=== PATIENT | male | born 1995 | race Hispanic/Latino ===

== ENCOUNTER 2023-04-30 22:11 | Inpatient (IN) | payer SELFPAY ==
[2023-04-30 23:19] LABS: ALT (SGPT) 27 U/L (8-55); AST (SGOT) 22 U/L (5-34); Albumin 3.9 g/dL (3.5-5.0); Alkaline Phosphatase 111 U/L (40-110); Anion Gap 16 mmol/L (10-20); BUN (Urea Nitrogen) 16 mg/dL (8.9-20.6); Bilirubin, Total 0.5 mg/dL (0.2-1.2); Calc. Creatinine Clearance 0 mL/min (70-130); Calcium 9.5 mg/dL (7.8-10.44); Carbon Dioxide 24 mmol/L (22-29); Chloride 95 mmol/L (98-107); Estimated GFR 120; Potassium 4.5 mmol/L (3.5-5.1); Protein, Total 6.9 g/dL (6.0-8.3); Sodium 130 mmol/L (136-145)
[2023-04-30 23:21] LABS: Glucose 432 mg/dL (70-105)
[2023-04-30 23:26] LABS: #Basophils 0.1 10x3/uL (0.0-0.2); #Monocytes 0.5 10x3/uL (0.0-1.1); #Neutrophils 3.3 10x3/uL (1.5-8.4); %Basophils 0.8 % (0.0-2.0); %Eosinophils 0.6 % (0.0-6.0); %Lymphocytes 37.9 % (18.0-47.0); %Monocytes 7.4 % (0.0-10.0); %Neutrophils 53.1 % (40.0-75.0); Hematocrit 43.3 % (38.8-50.0); Hemoglobin 15.3 g/dL (13.5-17.5); Mean Corpuscular HGB CONC 35.3 g/dL (32.0-36.0); Mean Corpuscular Hemoglobin 28.3 pg (27.0-33.0); Mean Platelet Volume 10.1 fl (7.4-10.4); Platelet Count 316 10x3/uL (150-450); RBC Distribution Width 11.8 % (11.5-14.5); Red Blood Cell (RBC) Count 5.41 10x6/uL (4.32-5.72); White Blood Cell (WBC) Count 6.2 10x3/uL (3.5-10.5)
[2023-05-01 01:16] LABS: SARS-CoV-2 NAA Rapid Test Not Detected (NotDetected)
[2023-05-01] MEDS ORDERED: Ketorolac Tromethamine 30 MG/ML VIAL ONE (02:07)
[2023-05-01] MEDS ORDERED: Dextrose 5% in Water 1,000 ML IV PRN (04:53)
[2023-05-01] MEDS ORDERED: Glucagon 1 MG/ML KIT IM PRN (04:53)
[2023-05-01] MEDS ORDERED: Acetaminophen 325 MG TAB PO PRN (04:53)
[2023-05-01] MEDS ORDERED: Senokot S 8.6-50 MG TAB PO PRN (04:53)
[2023-05-01] MEDS ORDERED: Guaifenesin DM 100-10/5 ML UDCUP PO PRN (04:53)
[2023-05-01] MEDS ORDERED: Calcium Carbonate 500 MG ChewTAB PO PRN (04:53)
[2023-05-01] MEDS ORDERED: Ondansetron PF 4 MG/2 ML Vial IVP PRN (04:53)
[2023-05-01] MEDS ORDERED: Dextrose 50% Abboject 50 ML SYRINGE SLOW IVP PRN (04:53)
[2023-05-01] MEDS ORDERED: Lactated Ringer's 1,000 ML IV SCH (05:15)
[2023-05-01 06:08] VITALS: BMI 23.6
[2023-05-01 06:29] LABS: Bilirubin Neg (Negative); Blood, Urine Negative (Negative); Clarity Clear (Clear); Glucose, Urine (Dipstick) >=1000 mg/dL (Negative); Ketone, Urine 150 mg/dL (Negative); Leukocyte Negative (Negative); Nitrite Negative (Negative); Protein, Urine (Dipstick) 100 mg/dl (Neg-Trace); Specific Gravity, Urine 1.015 (1.005-1.030); Urobilinogen Normal mg/dL (Less than 2)
[2023-05-01] MEDS: Gabapentin 400 MG CAP PO SCH ×3 (06:32→21:47)
[2023-05-01] MEDS: HumaLOG 300 UNITS/3 ML VIAL SC PRN ×5 (06:33→20:23)
[2023-05-01 06:36] LABS: RBC/HPF None Seen HPF (0-3)
[2023-05-01 06:37] LABS: Bacteria/HPF None Seen HPF (None Seen); Squamous Epithelial 0-3 HPF (0-3); WBC/HPF 0-3 HPF (0-3)
[2023-05-01] MEDS ORDERED: Lantus 1000 UNITS/10 ML VIAL SC SCH (09:00)
[2023-05-01] MEDS ORDERED: Gabapentin 400 MG CAP PO SCH (09:00)
[2023-05-01] MEDS: DULoxetine 20 MG CAP PO SCH (09:28)
[2023-05-01] MEDS: glipiZIDE 5 MG TAB PO SCH (09:28)
[2023-05-01] MEDS: Lisinopril 10 MG TAB PO SCH (09:28)
[2023-05-01] MEDS: Lidocaine 4% Patch TD SCH (09:28)
[2023-05-01] MEDS: metFORMIN 500 MG TAB PO SCH ×2 (09:28→16:01)
[2023-05-01] MEDS: Cyanocobalamin (Vitamin B-12) 1,000 MCG TAB PO SCH (09:29)
[2023-05-01] MEDS: Lantus 1000 UNITS/10 ML VIAL SC SCH ×2 (09:45→20:22)
[2023-05-01 10:50] LABS: Anion Gap 13 mmol/L (10-20); BUN (Urea Nitrogen) 14 mg/dL (8.9-20.6); Calc. Creatinine Clearance 188 mL/min (70-130); Calcium 8.8 mg/dL (7.8-10.44); Carbon Dioxide 23 mmol/L (22-29); Chloride 103 mmol/L (98-107); Estimated GFR 135; Glucose 350 mg/dL (70-105); Magnesium 1.6 mg/dL (1.6-2.6); Potassium 3.7 mmol/L (3.5-5.1); Sodium 135 mmol/L (136-145)
[2023-05-01] MEDS: Ketorolac Tromethamine 30 MG/ML VIAL IVP SCH ×2 (11:21→16:02)
[2023-05-01 15:21] LABS: Hemoglobin A1c Greater than 14.0 % (4.0-6.0)
[2023-05-01] MEDS ORDERED: Potassium Chloride 20 MEQ TAB PO SCH (19:00)
[2023-05-01] MEDS: LIDOCAINE Patch Removal TOP SCH (21:53)
[2023-05-02] MEDS: HumaLOG 300 UNITS/3 ML VIAL SC PRN ×5 (00:53→15:47)
[2023-05-02 04:42] LABS: Anion Gap 13 mmol/L (10-20); BUN (Urea Nitrogen) 17 mg/dL (8.9-20.6); Calc. Creatinine Clearance 173 mL/min (70-130); Calcium 8.9 mg/dL (7.8-10.44); Carbon Dioxide 24 mmol/L (22-29); Chloride 102 mmol/L (98-107); Estimated GFR 132; Glucose 246 mg/dL (70-105); Potassium 4.1 mmol/L (3.5-5.1); Sodium 135 mmol/L (136-145)
[2023-05-02] MEDS: Gabapentin 400 MG CAP PO SCH ×3 (05:03→21:06)
[2023-05-02] MEDS ORDERED: HYDROmorphone 0.5 MG/0.5 ML SYRINGE SLOW IVP SCH (08:30)
[2023-05-02] MEDS ORDERED: Ketorolac Tromethamine 30 MG/ML VIAL IVP SCH (08:30)
[2023-05-02] MEDS: Lantus 1000 UNITS/10 ML VIAL SC SCH (09:05)
[2023-05-02] MEDS: DULoxetine 20 MG CAP PO SCH (09:07)
[2023-05-02] MEDS: Lisinopril 10 MG TAB PO SCH (09:07)
[2023-05-02] MEDS: Cyanocobalamin (Vitamin B-12) 1,000 MCG TAB PO SCH (09:07)
[2023-05-02] MEDS: glipiZIDE 5 MG TAB PO SCH (09:07)
[2023-05-02] MEDS: metFORMIN 500 MG TAB PO SCH ×2 (09:07→16:08)
[2023-05-02] MEDS: Lidocaine 4% Patch TD SCH (09:09)
[2023-05-02] MEDS ORDERED: Lantus 1000 UNITS/10 ML VIAL SC SCH ×2 (09:15→21:00)
[2023-05-02] MEDS: LIDOCAINE Patch Removal TOP SCH (21:08)
[2023-05-03] MEDS: HumaLOG 300 UNITS/3 ML VIAL SC PRN ×3 (01:16→11:51)
[2023-05-03] MEDS ORDERED: Ketorolac Tromethamine 30 MG/ML VIAL IVP SCH (04:15)
[2023-05-03] MEDS: Gabapentin 400 MG CAP PO SCH (06:09)
[2023-05-03] MEDS: glipiZIDE 5 MG TAB PO SCH (08:45)
[2023-05-03] MEDS: Cyanocobalamin (Vitamin B-12) 1,000 MCG TAB PO SCH (08:45)
[2023-05-03] MEDS: Lisinopril 10 MG TAB PO SCH (08:45)
[2023-05-03] MEDS: metFORMIN 500 MG TAB PO SCH (08:45)
[2023-05-03] MEDS: DULoxetine 20 MG CAP PO SCH (08:49)
[2023-05-03] MEDS: Lidocaine 4% Patch TD SCH (08:52)
[2023-05-03] MEDS ORDERED: Lantus 1000 UNITS/10 ML VIAL SC SCH (09:00)
[2023-05-03 12:24] VITALS: BP 154/105; TEMP 98
[2023-05-04 16:57] LABS: ANA Symphony (Qualitative) Negative (Negative); ANA Symphony (Quantitative) 0.2 Ratio (< 0.7 Negative); dsDNA IgG Antibody Less than 0.6 IU/mL (<10 Negative)
== END 2023-05-03 12:35 | disposition home or self-care (01) | DRG 74 ==
LOC: CSHERS 22:11 → CSHTELE 05-01 05:28 → OBSVTOIN 05-02 11:16
PROVIDERS: ADMIT Student in an Organized Health Care Education/Training Program; ATTEND Internal Medicine
DX: E11.42 Type 2 diabetes mellitus with diabetic polyneuropathy (principal); E87.1 Hypo-osmolality and hyponatremia; E11.65 Type 2 diabetes mellitus with hyperglycemia; I10 Essential (primary) hypertension; E11.44 Type 2 diabetes mellitus with diabetic amyotrophy; R00.0 Tachycardia, unspecified; E78.00 Pure hypercholesterolemia, unspecified; R50.9 Fever, unspecified; Z20.822 Contact with and (suspected) exposure to COVID-19; Z79.899 Other long term (current) drug therapy; Z83.3 Family history of diabetes mellitus
CPT/HCPCS: 36415; 36416; 70450; 71045; 80048; 80053; 81001; 82550; 82607; 83036; 83735; 85025; 85652; 86038; 86140; 86225; 93005; J1650; J1815; J1885; J7120